=== PATIENT | female | born 1980 | race Two or more races ===

== ENCOUNTER → 2024-10-09 | Outpatient (CLI) | payer MEDICAID, SELFPAY ==
[2024-10-09 07:14] LABS: Basophils # (Auto) 0.1 Thou/mm3 (0.0-0.2); Basophils % (Auto) 1 % (0-2.5); Eosinophils # (Auto) 0.3 Thou/mm3 (0.0-0.5); Eosinophils % (Auto) 4 % (0-10); Hematocrit 34.3 % (36.0-46.0); Immature Granulocytes % (Auto) 0 % (0-0); Immature Granulocytes Auto 0.02 Thou/mm3 (0.00-0.00); Lymphocytes # (Auto) 2.1 Thou/mm3 (1.0-4.8); Lymphocytes % (Auto) 28 % (10-50); Mean Corpuscular HGB Conc 32.1 g/dl (31.0-37.0); Mean Corpuscular Volume 75 fL (80-100); Monocytes # (Auto) 0.6 Thou/mm3 (0.0-0.8); Monocytes % (Auto) 8 % (0-12); Neutrophils # (Auto) 4.5 Thou/mm3 (1.8-7.7); Neutrophils % (Auto) 59 % (37-80); Nucleated Red Blood Cell % 0 /100 WBC (0); Platelet Count 231 Thou/mm3 (140-440); RDW Standard Deviation 45.9 fL (36.4-46.3); Red Blood Count 4.58 Miln/mm3 (4.00-5.20); White Blood Count 7.6 Thou/mm3 (3.6-11.0)
[2024-10-09 07:58] LABS: HCG,Qualitative Serum Negative
--- NOTE | 2024-10-09 08:00 | XR_ITS ---
Examination: Thyroid sonography TECHNIQUE: Grayscale sonographic images thyroid lobes Date and time: 02/08/2025 0928 hours Months: Palpable right neck Mass. This week. FINDINGS: Right thyroid 4.9 cm Lower pole vascular nodule 12 x 7 x 9 mm Left thyroid 4.8 cm Lower pole cyst 6 x 4 mm IMPRESSION: Consider ultrasound-guided fine-needle aspiration of vascular lower pole right thyroid nodule, 12 x 7 x 9 mm
--- NOTE | 2024-10-09 08:30 | XR_ITS ---
Examination: Ultrasound-guided fine needle percutaneous aspiration thyroid nodule, right thyroid nodule. Thyroid sonography, limited Exam date and time: October 09, 2024 0941 hours INDICATIONS: Vascular right thyroid nodule on thyroid sonogram today. Technique: A timeout was completed verifying correct patient, procedure, site, positioning and special equipment if applicable. The patient was placed in supine position for the thyroid fine needle percutaneous aspiration The patient's right neck was prepped and draped in sterile fashion. Maximum barrier sterile technique, hand hygiene, ultrasound sterile technique. 1% lidocaine was used to anesthetize the skin and subcutaneous tissues to the patient's right thyroid nodule. Multiple fine needle aspirations were performed and multiple thyroid specimens placed in preservative according to the Afirm protocol. Specimens appears satisfactory. The attending radiologist was present for the entire procedure. Estimated blood loss 3 cc. The patient tolerated the procedure well and there were no complications. Impression: Successful ultrasound-guided fine-needle percutaneous aspiration thyroid nodule, right thyroid nodule.
[2024-10-09 08:42] LABS: Partial Thromboplastin Time 26.4 Seconds (22.0-36.0); Prothrombin Time 11.4 Seconds (9.0-12.2)
== END | disposition home or self-care (01) ==
PROVIDERS: Radiology Diagnostic Radiology; PCP Physician Assistant Medical; Referring Provider Physician Assistant Medical; Visit Provider Physician Assistant Medical
DX: E04.1 Nontoxic single thyroid nodule (principal)
CPT/HCPCS: 10005; 36415; 76536; 84703; 85025; 85610; 85730

== ENCOUNTER 2024-11-16 06:58 | Emergency (ER) | payer MEDICAID, SELFPAY ==
[2024-11-16 07:15] VITALS: BP 147/89; PULSE 73; RESP 21; TEMP 36.8; O2SAT 99
--- NOTE | 2024-11-16 07:37 | PD.EDBACK ---
ED Back Injury Pain RME/HPI General Chief Complaint: Back Pain/Injury Stated Complaint: BACK PAIN Time Seen by Provider: 11/16/24 07:35 Arrival date/time: 11/16/24 06:58 RME / HPI RME / HPI Narrative: DR. PELLETIER MAIN ED EVALUATION: 44-year-old female presents to the Emergency Department [facility] from home with complaint of right-sided sciatica pain. Patient reports pain originating in the right lower back and radiating down the posterior aspect of the right leg. Symptoms have been present for approximately one month but worsened significantly this morning. Per EMS, patient was found crying in pain and barely able to walk. She was given Fentanyl and Tylenol en route with partial relief by EMS. Patient denies trauma, urinary problems, incontinence, or allergies. Related Data Home Medications ?Medication ?Instructions ?Recorded ?Confirmed calcium carbonate (Calcium 500) 500 mg PO QDAY 05/17/19 01/11/23 multivitamin-ferrous 1 tab PO QAM 05/17/19 01/11/23 fumarate-folic acid 18 mg-400 mcg tablet (Multi Complete with Iron) omega 3 350 mg-dha 235 mg-epa 90 1 cap PO QDAY 05/17/19 01/11/23 mg-fish oil 597 mg capsule,delay rel (Lynco-3) norethindrone acetate 5 mg tablet 5 mg 1XD 01/11/23 01/11/23 Previous Rx's ?Medication ?Instructions ?Recorded amoxicillin 875 mg-potassium 1 tab PO Q12H #10 tabs 01/11/23 clavulanate 125 mg tablet oxycodone-acetaminophen 5 mg-325 1 tab PO Q6H PRN pain #10 tabs 01/11/23 mg tablet (Percocet) ibuprofen 600 mg tablet 600 mg PO Q6H PRN pain #30 tabs 11/16/24 Allergies Allergy/AdvReac Type Severity Reaction Status Date / Time cholecalciferol (vitamin D3) Allergy Verified 08/30/23 09:43 (From Vitamin D3) Review of Systems Review of Systems Systems Reviewed: All systems reviewed, normal except as documented Past Medical History Past Medical History CARDIAC: Positive Cardiac Disorders and Heart Murmur RESPIRATORY: Positive Asthma (child), Bronchitis (child) and Pneumonia (child) REPRODUCTIVE: Positive Previous Pregnancies (x5) MUSCULOSKELETAL: Positive Musculoskeletal Disorders HEMATOLOGIC: Positive Blood Disorders and Anemia PSYCHO/SOCIAL: Positive Depression (2010) OTHER HISTORY: Positive Hospitalization (child november 2018) and Mumps (child) Family History FAMILY HISTORY: Positive Family Respiratory Disorders (mother-asthma, bronchitis), Family Cardiac Disorders (father-htn, high cholesterol, brother-htn) and Family Cancer (father) Surgical History SURGICAL: Positive Section (x3) Social History SMOKING STATUS: Never smoker SECOND HAND EXPOSURE: No SUBSTANCE USE: does not use ALCOHOL: Never ED Exam Narrative Physical exam: GENERAL APPEARANCE: alert and oriented x 4, well-developed, well-nourished, no acute distress VITALS: All vitals were reviewed and the pulse ox is 99% on room air, which is normal according to my interpretation. HEENT: Normocephalic, atraumatic; pupils equal, round, reactive to light; EOMI; mucous membranes pink, moist; oropharynx clear NECK: Supple LUNGS: CTABL; no wheezes, no rales, no rhonchi HEART: Regular rate, regular rhythm; normal S1, S2; no murmurs ABDOMEN: non distended; normal BS; soft, no tenderness, no guarding, no rebound; no masses, no organomegaly, no hernia BACK: no CVA tenderness EXTREMITIES: atraumatic; no edema; lumbar radiculopathy; positive straight leg on the right, subjective numbness on the lateral left leg NEUROLOGIC: awake; alert and oriented x4; cranial nerves II-XII grossly intact; no focal sensory or motor deficits PSYCHIATRIC: appropriate mood and affect SKIN: warm, dry, normal color; no rashes Course Quality Measures none Orders Category Date Time Status CT abdomen pelvis wo con Stat Exams 11/16/24 09:[address] lumbar spine wo con Stat Exams 11/16/24 09:08 Completed CBC Stat Lab 11/16/24 08:11 Completed CMP [Comprehensive Metabolic Panel] Stat Lab 11/16/24 08:11 Completed HCG Qualitative,Urine Stat Lab 11/16/24 07:47 Completed UA, C/S IF [Urinalysis, C/S if Indicated] Stat Lab 11/16/24 07:47 Completed CYCLObenzaPRINE [Flexeril] Med 11/16/24 09:09 Discontinued 5 mg PO X1 ONE Ketorolac Inj [Toradol Inj] Med 11/16/24 08:10 Discontinued 15 mg IVP X1 ONE Morphine Inj Med 11/16/24 07:42 Discontinued 5 mg IVP X1 ONE Morphine Inj Med 11/16/24 09:08 Discontinued 5 mg IVP X1 ONE Ondansetron Inj [Zofran Inj] Med 11/16/24 07:42 Discontinued 4 mg IVP X1 ONE Ondansetron Inj [Zofran Inj] Med 11/16/24 09:08 Discontinued 4 mg IVP X1 ONE Vital Signs Vital signs: Vital Signs Temperature 98.3 F 11/16/24 07:15 Pulse Rate 73 11/16/24 07:15 Respiratory Rate 21 H 11/16/24 07:15 Blood Pressure 147/89 H 11/16/24 07:15 Pulse Oximetry (%) 99 11/16/24 07:15 Oxygen Delivery Method Room Air 11/16/24 07:15 Back Pain / Injury MDM Narrative MDM Narrative:: Lynn Rogers am scribing for and in the presence of Dr. Pelletier. Patient data External records reviewed:: [facility] previous records and EMS form Clinical information provided by:: patient and EMS Social determinants that could affect healthcare access:: none Patient has the following chronic illnesses:: Denies any PMHx, daily medications, or known allergies. section surgeries x3. How is presenting disease/condition affected by chronic disease/condition?: no chronic disease Evaluation data The following diagnostics were reviewed and interpreted by me:: lab results and radiology exam(s) Lab and/or radiology exams considered but not ordered:: none Interpretation Summary: Procedure(s): CT lumbar spine wo [facility] Accession Number(s): [id number] cc: Gianluca Mckinney MD; Shen Markham MD; Karis Pelletier MD~ Examination: CT lumbar spine, without contrast. 2-D sagittal reconstructions. 2-D coronal reconstructions. 3-D reconstructions. Date and time of exam:November 16, 2024 0950 hours INDICATIONS: Onset low back pain radiating down the right leg today CTDI: vol (mGy):18.5 DLP: (mGycm):609 Technique: Multiple 1.25 mm axial sections of the lumbar spine without intravenous contrast. have been obtained. 2-D sagittal and coronal reconstructions have been obtained. 3-D reconstructions have been obtained. Low dose protocols were performed. One or more of the following dose reduction techniques were used; automated exposure control, adjustment of the mA and/or KV according to patient size, use of iterative reconstruction technique. Findings: Satisfactory alignment lumbar vertebral bodies. No lumbar vertebral body compression fracture Transitional S1 vertebral body Lumbar pedicles laminated transverse and posterior spinous processes intact L5-S1 large, 10 mm right paracentral disc bulge displacing the right S1 nerve root No focal disc protrusions involving the upper lumbar levels IMPRESSION: L5-S1 large, 10 mm, right paracentral disc bulge displacing the right S1 nerve root Dictated By: Shen Markham MD Procedure(s): CT abdomen pelvis wo [facility] Accession Number(s): [id number] cc: Gianluca Mckinney MD; Shen Markham MD; Karis Pelletier MD~ Examination: CT abdomen and pelvis without contrast. Coronal 3-D reconstructions. Sagittal 2-D reconstructions. Date and time of exam:November 16, 2024 0950 hours INDICATIONS: Right flank and right lower abdominal pain today CTDI: vol (mGy): 6.95 DLP: (mGycm): 382 Technique: Axial images of the abdomen have been obtained, 3 mm slice thickness Intravenous contrast material has not been administered. Low dose protocols were performed. One or more of the following dose reduction techniques were used; automated exposure control, adjustment of the mA and/or KV according to patient size, use of iterative reconstruction technique. Findings: No focal liver or splenic lesion No gallstones No pancreatic or adrenal mass No renal or ureteral calculi, no hydronephrosis Absent appendix No pericecal inflammatory change Retroverted uterus with enlarged fundus No bowel obstruction No diverticulitis No bladder mass or bladder calculi L5-S1 large right paracentral disc bulge IMPRESSION: No renal or ureteral calculi, no hydronephrosis Minimal dilatation right ureter, consider right urinary tract infection Recommend pelvic sonography to assess enlarged uterus Dictated By: Shen Markham MD Medications / Prescriptions Medications or Prescriptions considered but not ordered:: none Medication administrations:: Medication Administration History Discontinued Medications Cyclobenzaprine HCl (Cyclobenzaprine 5 Mg Tablet) 5 mg PO X1 ONE Stop: 11/16/24 09:10 Last Admin: 11/16/24 09:35 Dose: 5 mg Documented By: DB Ketorolac Tromethamine (Ketorolac Inj 30 Mg/Ml Vial) 15 mg IVP X1 ONE Stop: 11/16/24 08:11 Last Admin: 11/16/24 08:15 Dose: 15 mg Documented By: LF Morphine Sulfate (Morphine Sulf Inj 10 Mg/Ml Vial) 5 mg IVP X1 ONE Stop: 11/16/24 07:43 Last Admin: 11/16/24 08:11 Dose: Not Given Documented By: JAKE Non-Admin Reason: Discontinued Morphine Sulfate (Morphine Sulf Inj 10 Mg/Ml Vial) 5 mg IVP X1 ONE Stop: 11/16/24 09:09 Last Admin: 11/16/24 09:34 Dose: 5 mg Documented By: BRADY Ondansetron HCl (Ondansetron Inj 2 Mg/Ml Inj 2 Ml) 4 mg IVP X1 ONE Stop: 11/16/24 07:43 Last Admin: 11/16/24 08:12 Dose: Not Given Documented By: JAKE Non-Admin Reason: Discontinued Ondansetron HCl (Ondansetron Inj 2 Mg/Ml Inj 2 Ml) 4 mg IVP X1 ONE Stop: 11/16/24 09:09 Last Admin: 11/16/24 09:33 Dose: 4 mg Documented By: BRADY see above Consultations Consultation(s) initiated? (list below): No Diagnosis Differential diagnosis back pain/injury: lumbar radiculopathy, sciatica, strain of lumbar region and other (herniated disc, spinal stenosis) Most likely diagnosis given after review of the tests above:: Herniation of intervertebral disc between L5 and S1 Admission Indicated Admission indicated?: not indicated Admission Request Was there a request for admission?: No Disposition Plan Disposition Plan: Discharge Discharge Attestation Discharge Attestation: The patient and all family members were given an opportunity to ask questions and understood the discharge instructions. Discharge instructions specifically effects, indications for sooner follow up or return to the emergency department, and the expected course of current diagnosis. Patient condition: Stable Discharge Plan Prescriptions/Referrals Prescriptions/Med Rec: New ibuprofen 600 mg tablet 600 mg PO Q6H PRN (Reason: pain) Qty: 30 0RF No Action calcium carbonate [Calcium 500] 500 mg calcium (1,250 mg) Tablet 500 mg PO QDAY Multi Complete with Iron 18-400 mg-mcg Tablet 1 tab PO QAM Lynco-3 350 mg-235 mg- 90 mg-597 mg Capsule,Delayed Release(Dr/Ec) 1 cap PO QDAY norethindrone acetate 5 mg Tablet 5 mg 1XD oxycodone-acetaminophen [Percocet] 5-325 mg tablet 1 tab PO Q6H MDD 6 tabs PRN (Reason: pain) Qty: 10 0RF amoxicillin-pot clavulanate 875-125 mg tablet 1 tab PO Q12H Qty: 10 0RF Referrals: Gianluca Mckinney MD [Primary Care Provider] - In 1 week Problem List Clinical Impression: Herniation of intervertebral disc between L5 and S1 Patient/Caregiver Discharge Instructions Education Materials: Understanding Lumbar Radiculopathy Print Language: Qatari
[2024-11-16 07:39] VITALS: BP 125/97; PULSE 69; RESP 18; TEMP 36.9; O2SAT 100
[2024-11-16 07:52] LABS: Collection Type, Urine Catheter
[2024-11-16 08:04] LABS: HCG Qualitative,Urine Negative
[2024-11-16] MEDS: KETOROLAC INJ 30 MG/ML VIAL 15 MG IVP (08:15)
--- NOTE | 2024-11-16 08:19 | PC.NURSE ---
ADDITIONAL PAIN MEDS GIVEN AND WARM BLAKETS APPLIED TO RT HIP AND LEG FOR COMFORT. FAMILY AT BEDSIDE. PENDING UA AT THIS TIME
[2024-11-16 08:38] LABS: Basophils # (Auto) 0.1 Thou/mm3 (0.0-0.2); Basophils % (Auto) 1 % (0-2.5); Eosinophils # (Auto) 0.2 Thou/mm3 (0.0-0.5); Eosinophils % (Auto) 2 % (0-10); Hematocrit 36.7 % (36.0-46.0); Hemoglobin 11.2 g/dL (12.0-16.0); Immature Granulocytes Auto 0.02 Thou/mm3 (0.00-0.00); Lymphocytes # (Auto) 1.5 Thou/mm3 (1.0-4.8); Lymphocytes % (Auto) 19 % (10-50); Mean Corpuscular HGB Conc 30.5 g/dl (31.0-37.0); Mean Corpuscular Hemoglobin 23.9 pg (25.0-35.0); Mean Corpuscular Volume 78 fL (80-100); Monocytes # (Auto) 0.4 Thou/mm3 (0.0-0.8); Monocytes % (Auto) 6 % (0-12); Neutrophils # (Auto) 5.7 Thou/mm3 (1.8-7.7); Neutrophils % (Auto) 72 % (37-80); Nucleated Red Blood Cell # 0.00 Thou/mm3 (0.00-0.00); Nucleated Red Blood Cell % 0 /100 WBC (0); Platelet Count 309 Thou/mm3 (140-440); RDW Standard Deviation 46.5 fL (36.4-46.3); Red Blood Count 4.69 Miln/mm3 (4.00-5.20); White Blood Count 7.9 Thou/mm3 (3.6-11.0)
[2024-11-16 08:57] LABS: Alanine Aminotransferase 20 U/L (10-49); Albumin, Serum 4.5 gm/dL (3.5-5.0); Albumin/Globulin Ratio 2.0 (1.2-2.2); Alkaline Phosphatase 44 U/L (46-116); Anion Gap 7 (7-16); Aspartate Amino Transferase 19 U/L (0-34); BUN/Creatinine Ratio 10 Ratio (12-20); Bilirubin,Total 0.8 mg/dL (0.3-1.2); Blood Urea Nitrogen 6 mg/dL (9-23); Calcium 9.3 mg/dL (8.3-10.6); Calcium (Corrected) 9.3 mg/dL (8.5-10.1); Carbon Dioxide 25.7 mMol/L (20.0-31.0); Chloride 109 mMol/L (98-107); Creatinine (Component) 0.6 mg/dL (0.6-1.3); Estimated Creatinine Clearance 4.4 mL/min (>60); Globulin 2.3 gm/dL (2.3-3.5); Glucose 105 mg/dL (74-106); Osmolality,Calculated 280 (275-295); Potassium 4.3 mMol/L (3.4-5.1); Sodium 142 mMol/L (136-145); Total Protein 6.8 gm/dL (5.7-8.2); eGFR > 60 See Note
[2024-11-16 08:59] LABS: Bacteria,Urine Rare; Bilirubin,Urine Negative (Negative); Blood,Urine Negative (Negative); Clarity,Urine Clear (Clear/Hazy); Color,Urine Yellow (Lt Yel-Yel); Culture Indicated,Urine Not Indicated; Glucose, Urine Negative (Negative); Ketones,Urine Negative (Negative); Leukocyte Esterase,Urine Negative (Negative); Nitrite,Urine Negative (Negative); PH,Urine 8.0 (5.0-7.0); Protein,Urine Negative (Neg - Trace); RBC,Urine 2 /hpf (0-3); Specific Gravity,Urine 1.015 (1.001-1.035); Squamous Epithelial Cell,Urine 1 /hpf (0-5); Urobilinogen,Urine 0.2 mg/dL (0.0-1.0); WBC,Urine 2 /hpf (0-5)
--- NOTE | 2024-11-16 09:08 | XR_ITS ---
Examination: CT lumbar spine, without contrast. 2-D sagittal reconstructions. 2-D coronal reconstructions. 3-D reconstructions. Date and time of exam:November 16, 2024 0950 hours INDICATIONS: Onset low back pain radiating down the right leg today CTDI: vol (mGy):18.5 DLP: (mGycm):609 Technique: Multiple 1.25 mm axial sections of the lumbar spine without intravenous contrast. have been obtained. 2-D sagittal and coronal reconstructions have been obtained. 3-D reconstructions have been obtained. Low dose protocols were performed. One or more of the following dose reduction techniques were used; automated exposure control, adjustment of the mA and/or KV according to patient size, use of iterative reconstruction technique. Findings: Satisfactory alignment lumbar vertebral bodies. No lumbar vertebral body compression fracture Transitional S1 vertebral body Lumbar pedicles laminated transverse and posterior spinous processes intact L5-S1 large, 10 mm right paracentral disc bulge displacing the right S1 nerve root No focal disc protrusions involving the upper lumbar levels IMPRESSION: L5-S1 large, 10 mm, right paracentral disc bulge displacing the right S1 nerve root
--- NOTE | 2024-11-16 09:08 | XR_ITS ---
Examination: CT abdomen and pelvis without contrast. Coronal 3-D reconstructions. Sagittal 2-D reconstructions. Date and time of exam:November 16, 2024 0950 hours INDICATIONS: Right flank and right lower abdominal pain today CTDI: vol (mGy): 6.95 DLP: (mGycm): 382 Technique: Axial images of the abdomen have been obtained, 3 mm slice thickness Intravenous contrast material has not been administered. Low dose protocols were performed. One or more of the following dose reduction techniques were used; automated exposure control, adjustment of the mA and/or KV according to patient size, use of iterative reconstruction technique. Findings: No focal liver or splenic lesion No gallstones No pancreatic or adrenal mass No renal or ureteral calculi, no hydronephrosis Absent appendix No pericecal inflammatory change Retroverted uterus with enlarged fundus No bowel obstruction No diverticulitis No bladder mass or bladder calculi L5-S1 large right paracentral disc bulge IMPRESSION: No renal or ureteral calculi, no hydronephrosis Minimal dilatation right ureter, consider right urinary tract infection Recommend pelvic sonography to assess enlarged uterus
[2024-11-16] MEDS: ONDANSETRON INJ 2 MG/ML INJ 2 ML 4 MG IVP (09:33)
[2024-11-16] MEDS: MORPHINE SULF INJ 10 MG/ML VIAL 5 MG IVP (09:34)
[2024-11-16 10:29] VITALS: BP 125/86; PULSE 62; RESP 16; TEMP 37.3; O2SAT 100
[2024-11-16 12:07] VITALS: BP 145/84; PULSE 68; RESP 12; TEMP 36.7; O2SAT 100
== END 2024-11-16 12:08 | disposition home or self-care (01) ==
PROVIDERS: Emergency Provider Emergency Medicine; PCP Family Medicine
DX: M51.17 Intervertebral disc disorders with radiculopathy, lumbosacral region (principal); R10.31 Right lower quadrant pain
CPT/HCPCS: 36415; 72131; 74176; 80053; 81001; 81025; 85025; 96374; 96375; 99283; J1885; J2270; J2405; A9270